=== PATIENT | male | born 1970 | race Caucasian/White ===

== ENCOUNTER 2019-02-26 09:08 | Day surgery (SDC) | payer OTHER ==
[~2019-02-26] VITALS: Ht 172.7 cm; Wt 90.1 kg
[2019-02-26 09:47] VITALS: Ht 172.7 cm; Wt 90.1 kg
[2019-02-26] MEDS ORDERED: LIDOCAINE 4% SOLUTION 50 ML BTL ONE (09:47)
[2019-02-26] MEDS ORDERED: LISI-471 PO (09:49)
[2019-02-26 10:02] VITALS: BP 115/73; PULSE 61; RESP 14
[2019-02-26] MEDS ORDERED: FENTAnyl 50 MCG/ML VIAL ONE (10:48)
[2019-02-26] MEDS ORDERED: MIDAZOLAM 1 MG/ML 2 ML INJ ONE ×2 (10:48)
[2019-02-26 11:06] VITALS: BP 109/58; RESP 23
== END 2019-02-26 12:47 | disposition home or self-care (01) ==
LOC: GIL 09:08
PROVIDERS: ATTEND Internal Medicine Gastroenterology
DX: K29.50 Unspecified chronic gastritis without bleeding (principal); K20.0 Eosinophilic esophagitis
CPT/HCPCS: 43239; 88305; 88312; 88313; J2250; J3010; Z7610